=== PATIENT | female | born 1945 | race African-American/Black ===

== ENCOUNTER 2025-09-17 16:38 | Emergency (ER) | payer MEDICARE, OTHER ==
[~2025-09-17] VITALS: Ht 157.5 cm; Wt 45.0 kg
[2025-09-17 16:53] VITALS: BP 115/45; TEMP 37.1; O2SAT 99
[2025-09-17 16:55] VITALS: PULSE 53; RESP 18; O2SAT 99
== END 2025-09-17 21:20 | disposition left against medical advice (07) ==
LOC: ER 16:38
DX: R53.1 Weakness (principal); R42 Dizziness and giddiness
CPT/HCPCS: 99281